=== PATIENT | male | born 1985 | race Caucasian/White ===

== ENCOUNTER 2019-07-23 22:49 | Emergency (ER) | payer MEDICAID, OTHER ==
[~2019-07-23] VITALS: Ht 188 cm; Wt 149.7 kg
[2019-07-23 22:51] VITALS: BP 130/84
[2019-07-24] MEDS ORDERED: cefTRIAXone SOD 1,000 MG VL IM ONE
[2019-07-24] MEDS ORDERED: methylPREDNISolone SOD SUCC 125 MG/2 ML VL IM ONE
== END 2019-07-24 00:35 | disposition home or self-care (01) ==
LOC: ER 22:53
DX: J03.90 Acute tonsillitis, unspecified (principal)
CPT/HCPCS: 96372; 99284; J0696; J2930

== ENCOUNTER 2021-10-09 17:36 | Emergency (ER) | payer OTHER ==
[~2021-10-09] VITALS: Ht 188 cm; Wt 127.0 kg
[2021-10-09 17:39] VITALS: BP 140/85
== END 2021-10-09 22:47 | disposition left against medical advice (07) ==
LOC: ER 17:36
DX: S05.32XA Ocular laceration without prolapse or loss of intraocular tissue, left eye, initial encounter (principal); Z53.21 Procedure and treatment not carried out due to patient leaving prior to being seen by health care provider; W22.8XXA Striking against or struck by other objects, initial encounter; Y93.89 Activity, other specified; Y92.89 Other specified places as the place of occurrence of the external cause; Y99.8 Other external cause status